=== PATIENT | female | born 1990 | race Caucasian/White ===

== ENCOUNTER 2017-11-23 20:54 | Emergency (ER) | payer BC, OTHER ==
[2017-11-23 21:08] LABS: URINE APPEARANCE Clear; URINE BILIRUBIN Negative (NEGATIVE); URINE BLOOD Negative (NEGATIVE); URINE GLUCOSE (UA) Negative (NEGATIVE); URINE KETONE Trace (NEGATIVE); URINE LEUK ESTERASE Negative (NEGATIVE); URINE NITRITE Negative (NEGATIVE); URINE PROTEIN Negative (NEGATIVE); URINE UROBILINOGEN 0.2 (0.2-1.0)
[2017-11-23 21:09] LABS: HCG,QUALITATIVE URINE POSITIVE; URINE COLOR YELLOW
[2017-11-23 21:10] VITALS: BP 115/72; PULSE 77; TEMP 98.4; BMI 21.4
--- NOTE | 2017-11-23 21:13 | PDOC ---
History of Present Illness - General Chief Complaint: Vaginal Bleeding Stated Complaint: VAG BLEEDING W/ Time Seen by Provider: 11/23/17 21:01 - History of Present Illness Initial Comments: This 26-year-old female presents with 2 day history of progressive pelvic and lower back discomfort and one-day history of vaginal bleeding. LMP . The patient has contacted an assistant production editor but has not yet been seen; first ultrasound scheduled for 12/05/17. Patient has no other complaints and denies fever/chills, nausea/vomiting/diarrhea. She has not had any recent dysuria/ hematuria/urinary frequency or urgency. No recent trauma or overuse. The patient states that she has continued her work out regimen including lower body resistance exercises such as squats using weights. Patient describes vaginal bleeding as spotting earlier today and soaking through 1 "panty liner" prior to presenting to ER Patient denies any significant past medical history. Past History - Past Medical History Allergies/Adverse Reactions: Allergies Allergy/AdvReac Type Severity Reaction Status Date / Time No Known Allergies Allergy Unverified 11/23/17 20:55 Home Medications: Ambulatory Orders NK [No Known Home Medication] 11/23/17 COPD: No - Reproductive History Is Patient Now?: Yes (#): 1 Para: 0 Cervical CA: No Dysfunctional Uterine Bleeding: No Ectopic : No Endometrial CA: No Polycystic Ovaries: No Therapeutic (s) & number: No Tubal Ligation: No Spontaneous : 0 - Suicide/Smoking/Psychosocial Hx Smoking History: Former smoker Have you smoked in the past 12 months: Yes Information on smoking cessation initiated: Yes 'Breaking Loose' booklet given: 11/23/17 Review of Systems - Review of Systems Able to Perform ROS?: Yes Comments:: 12 point review of systems is negative except for what is noted in the history of present illness *Physical Exam - Vital Signs Last Vital Signs Temp Pulse Resp BP Pulse Ox 98.4 F 77 16 115/72 100 11/23/17 20:58 11/23/17 20:58 11/23/17 20:58 11/23/17 20:58 11/23/17 20:58 - Physical Exam Comments: GENERAL: Adult female, alert and oriented 3, in no acute distress HEAD: Normal with no signs of trauma. EYES: PERRLA, EOMI, sclera anicteric, conjunctiva clear. ENT: Ears normal, nares patent, oropharynx clear without exudates. Dry mucous membranes. NECK: Normal range of motion, supple without lymphadenopathy, JVD, or masses. LUNGS: Breath sounds equal, clear to auscultation bilaterally. No wheezes, and no crackles. HEART:Regular rate and rhythm, normal S1 and S2 without murmur, rub or gallop. ABDOMEN:.normal bowel sounds . Mild suprapubic tenderness. No guarding or rebound.No masses No distention. EXTREMITIES: Normal range of motion, no edema. No clubbing or cyanosis. No erythema, or tenderness. NEUROLOGICAL: Cranial nerves II through XII grossly intact. Normal speech. No focal neurological deficits. MUSCULOSKELETAL: Back non-tender to palpation, no CVA tenderness SKIN: Warm, Dry, normal turgor, no rashes or lesions noted. ED Treatment Course - ADDITIONAL ORDERS Additional order review: Laboratory Results 11/23/17 21:00 Urine Color Yellow Urine Appearance Clear Urine pH 7.0 Ur Specific Orange 1.020 Urine Protein Negative Urine Glucose (UA) Negative Urine Ketones Trace Urine Blood Negative Urine Nitrite Negative Urine Bilirubin Negative Urine Urobilinogen 0.2 Ur Leukocyte Esterase Negative Urine HCG, Qual Positive Progress Note - Progress Note Progress Note: Pelvic ultrasound performed to evaluate for intrauterine positioning of gestation and viability. Ultrasound interpreted by Dr. Diaz of radiology staff: Single viable intrauterine gestation present with heart rate of 159/minute Gestational age estimated at 6 weeks 2 days No other significant abnormality seen. Results discussed with the patient. Patient will follow-up with her assistant production editor; in the meantime, would hold on performing resistance exercises and using heavy weights until discussion with her assistant production editor. She should return to the emergency room if she has severe pain or persistent, heavy vaginal bleeding. *DC/Admit/Observation/Transfer Diagnosis at time of Disposition: First trimester bleeding - Discharge Dispostion Disposition: HOME Condition at time of disposition: Stable - Referrals Referrals: Alex Hitchcock [Primary Care Provider] - - Patient Instructions Printed Discharge Instructions: DI for Vaginal Bleeding During Additional Instructions: Avoid strenuous resistance exercises as discussed Return to ER if you have severe bleeding/worsening pain Follow-up with your assistant production editor as scheduled - Post Discharge Activity
== END 2017-11-24 00:03 | disposition home or self-care (01) ==
LOC: FER 20:54
DX: O26.891 Other specified pregnancy related conditions, first trimester (principal); Z3A.01 Less than 8 weeks gestation of pregnancy; N93.9 Abnormal uterine and vaginal bleeding, unspecified
CPT/HCPCS: 76801-TC; 81003; 84703; 99282-25

== ENCOUNTER 2023-10-03 16:41 | Emergency (ER) | payer BC, OTHER ==
[2023-10-03 17:33] VITALS: BP 104/67; PULSE 83; RESP 18; TEMP 98.3; BMI 25.6
== END 2023-10-03 17:57 | disposition home or self-care (01) ==
LOC: FER 16:41
DX: O99.891 Other specified diseases and conditions complicating pregnancy (principal); M79.671 Pain in right foot; Z3A.16 16 weeks gestation of pregnancy
CPT/HCPCS: 99282-25